=== PATIENT | female | born 1980 | race Caucasian/White ===

== ENCOUNTER 2021-10-07 09:38 | Outpatient (CLI) | payer BC, SELFPAY ==
--- NOTE | ~2021-10-07 | US_ITS ---
US abdomen complete DATE: 10/07/2021 10:55 INDICATION: Abnormal levels of serum enzymes TECHNIQUE: Real-time imaging and Doppler analysis of the abdomen COMPARISON: None FINDINGS: There is an irregular relatively circumscribed hypoechoic approximately 3.6 x 3.6 cm area o f the liver near to the gallbladder, which may be focal fat sparing versus hepatic mass lesion. Furth er evaluation with hepatic MRI examination would be helpful for further evaluation. No gallstones or gallbladder wall thickening or pericholecystic fluid collection. Negative sonographi c Linda's sign. The common bile duct measures 5.4 mm, normal. No renal mass lesion or hydronephrosis. Spleen measures up to 11.5 cm length, within normal range. Normal caliber of the abdominal aorta. Inferior vena cava is unremarkable. IMPRESSION: Irregular hypoechoic area adjacent to gallbladder, which may be focal fat sparing versus hepatic mass lesions; hepatic MR would be helpful to differentiate these possibilities Reviewed, dictated and finalized at [facility]. Reviewed, dictated and finalized at [facility]. IMPRESSION: Irregular hypoechoic area adjacent to gallbladder, which may be foc al fat sparing versus hepatic mass lesions; hepatic MR would be helpful to diff erentiate these possibilities
== END 2021-10-07 09:39 | disposition home or self-care (01) ==
PROVIDERS: PCP Family Medicine; Visit Provider Nurse Practitioner Gerontology
DX: R74.8 Abnormal levels of other serum enzymes (principal)
CPT/HCPCS: 76700

== ENCOUNTER 2021-11-04 16:29 | Outpatient (CLI) | payer BC, SELFPAY ==
--- NOTE | ~2021-11-04 | MR_ITS ---
EXAMINATION: MR abdomen wo/w con DATE: 11/04/2021 17:27 INDICATION: Liver mass. TECHNIQUE: Magnetic resonance imaging (MRI) of the abdomen was performed without and with 15 mL Multi Adam intravenous contrast. COMPARISON: Abdomen ultrasound 10/08/2019 FINDINGS: There is diffuse hepatic steatosis with focal sparing in the gallbladder fossa. There is a 7 mm cyst in the liver. The gallbladder, spleen, pancreas, adrenal glands, and left kidney are normal. There is a 5 mm cyst in right kidney. There are no dilated loops of bowel. There are no pathologically enlarg ed lymph nodes. There is no free intraperitoneal fluid. IMPRESSION: 1. Diffuse hepatic steatosis. The ultrasound finding correlates with focal sparing in the gallbladder fossa. Reviewed, dictated and finalized at location [facility]. IMPRESSION: 1. Diffuse hepatic steatosis. The ultrasound finding correlates with focal spar ing in the gallbladder fossa.
[2021-11-04 17:00] LABS: Estimated Glomerular Filt Rate > 60
== END 2021-11-04 16:30 | disposition home or self-care (01) ==
PROVIDERS: PCP Family Medicine; Visit Provider Nurse Practitioner Gerontology
DX: K76.0 Fatty (change of) liver, not elsewhere classified (principal)
CPT/HCPCS: 74183; A9577

== ENCOUNTER 2022-02-18 07:54 | Outpatient (CLI) | payer BC, SELFPAY ==
--- NOTE | 2022-02-18 08:10 | EST_ITS ---
Patient Info Name: Chrissy Schmid Age: 41 years : 1980 Gender: Female Ht: 66 in Wt: 165 lbs BSA: 1.88 m2 Exam Date: 02/18/2022 9:55 AM Exam Location: [facility] Stress Patient Status: Outpatient Admit Date: 02/18/2022 Staff Ordering Physician: Hoang Sutton DO Attending Provider: Hoang Sutton DO Exercise Technologist: Carmen Alvarado RDCS Exercise Physician: Hoang Sutton DO Exam Type: CA stress test treadmill Study Info Indications R06.09 - Other forms of dyspnea A treadmill exercise stress test was performed. Summary 1. 1. Negative Juan exercise stress test for ischemic ST changes by ECG criteria. 2. 2. Good functional capacity, achieving 10 METs of workload. 3. 3. Appropriate HR response to exercise. 4. 4. Appropriate HR recovery at 1 minute post exercise. 5. 5. No imaging with stress testing. 6. 6. Patient informed of the above results. Protocol: Juan Stress ECG Details Stage: REST Duration (min): 1 min : 1 sec Speed (mph): 0.0 Grade (%): 0 HR (bpm): 87 SBP (mmHg): 111 DBP (mmHg): 82 METS: --- Stage: REST Duration (min): 6 min : 50 sec Speed (mph): 0.0 Grade (%): 0 HR (bpm): 105 SBP (mmHg): 111 DBP (mmHg): 82 METS: --- Stage: STAGE 1 Duration (min): 1 min : 0 sec Speed (mph): 1.7 Grade (%): 10 HR (bpm): 118 SBP (mmHg): 111 DBP (mmHg): 82 METS: --- Stage: STAGE 1 Duration (min): 2 min : 0 sec Speed (mph): 1.7 Grade (%): 10 HR (bpm): 129 SBP (mmHg): 111 DBP (mmHg): 82 METS: --- Stage: STAGE 1 Duration (min): 3 min : 0 sec Speed (mph): 1.7 Grade (%): 10 HR (bpm): 126 SBP (mmHg): 146 DBP (mmHg): 90 METS: --- Stage: STAGE 2 Duration (min): 1 min : 0 sec Speed (mph): 2.5 Grade (%): 12 HR (bpm): 141 SBP (mmHg): 146 DBP (mmHg): 90 METS: --- Stage: STAGE 2 Duration (min): 2 min : 0 sec Speed (mph): 2.5 Grade (%): 12 HR (bpm): 143 SBP (mmHg): 181 DBP (mmHg): 86 METS: --- Stage: STAGE 2 Duration (min): 3 min : 0 sec Speed (mph): 2.5 Grade (%): 12 HR (bpm): 149 SBP (mmHg): 181 DBP (mmHg): 86 METS: --- Stage: STAGE 3 Duration (min): 1 min : 0 sec Speed (mph): 3.4 Grade (%): 14 HR (bpm): 162 SBP (mmHg): 176 DBP (mmHg): 86 METS: --- Stage: STAGE 3 Duration (min): 2 min : 0 sec Speed (mph): 3.4 Grade (%): 14 HR (bpm): 173 SBP (mmHg): 176 DBP (mmHg): 86 METS: --- Stage: STAGE 1 Duration (min): 3 min : 0 sec Speed (mph): 1.7 Grade (%): 10 HR (bpm): 126 SBP (mmHg): 146 DBP (mmHg): 90 METS: --- Stage: STAGE 2 Duration (min): 3 min : 0 sec Speed (mph): 2.5 Grade (%): 12 HR (bpm): 149 SBP (mmHg): 181 DBP (mmHg): 86 METS: --- Stage: STAGE 3 Duration (min): 3 min : 0 sec Speed (mph):
--- NOTE | 2022-02-18 08:10 | ECHO_ITS ---
Patient Info Name: Chrissy Schmid Age: 41 years : 1980 Gender: Female Ht: 66 in Wt: 165 lbs BSA: 1.88 m2 HR: 78 bpm BP: 137 / 104 mmHg Technical Quality: Good Exam Date: 02/18/2022 8:39 AM Exam Location: [facility] Pulmonary Patient Status: Outpatient Admit Date: 02/18/2022 Staff Ordering Physician: Hoang Sutton DO F[employer]er [employer] Burner: Douglas Linda RDCS, RT Attending Provider: Hoang Sutton DO Referring Physician: Herman ADRIAN; Exam Type: CA echo doppler color flow Study Info Indications R06.09 - Other forms of dyspnea Complete two-dimensional, color flow and Doppler transthoracic echocardiogram is performed. Strain analysis performed. Summary 1. Complete two-dimensional, color flow and Doppler transthoracic echocardiogram is performed. 2. Left ventricular chamber dimension is normal. 3. Left ventricular systolic function is normal, estimated at 60-65%. 4. The left ventricular diastolic function is normal. 5. E/e' 7 is not elevated. 6. Global longitudinal strain is normal at -17.9%. 7. The mitral valve has mild posterior prolapse. 8. There is trace tricuspid valve regurgitation. Left Ventricle Global longitudinal strain is normal at -17.9%. E/e' 7 is not elevated. Left ventricular chamber dimension is normal. Left ventricular systolic function is normal, estimated at 60-65%. The left ventricular diastolic function is normal. Right Ventricle Right ventricular chamber dimension is normal. Right ventricular systolic function is normal. Left Atria Left atrial chamber dimension is normal. Right Atria Right atrial chamber dimension is normal. Aortic Valve The aortic valve is trileaflet. There is no aortic valve stenosis. There is no aortic valve regurgitation. Pulmonic Valve There is no pulmonic regurgitation. Mitral Valve The mitral valve has mild posterior prolapse. There is no mitral valve stenosis. There is no mitral valve regurgitation. Tricuspid Valve There is trace tricuspid valve regurgitation. RVSP is not calculated due to an inadequate TR jet. Pericardium/Pleural There is no pericardial effusion. Inferior Vena Cava Normal inferior vena cava with >50% collapse upon inspiration consistent with normal right atrial pressure, 5 mmHg. Aorta The aortic root size at the sinus of Valsalva is normal. Left Ventricular Outflow Tract Name Value Normal LVOT 2D LVOT Diameter 2.0 cm LVOT Doppler LVOT Peak Gradient 3 mmHg LVOT Mean Gradient 2 mmHg LVOT VTI 18 cm LVOT VTI/AV VTI Ratio 0.8 LVOT Stroke Volume 54 ml LVOT CO 4.5 l/min LVOT CI 2.4 l/min/m2 Mitral Valve Name Value Normal MV Doppler
== END 2022-02-18 07:55 | disposition home or self-care (01) ==
LOC: ANHCARD 07:56
PROVIDERS: PCP Family Medicine; Visit Provider Internal Medicine Cardiovascular Disease
DX: I34.1 Nonrheumatic mitral (valve) prolapse (principal); R06.09 Other forms of dyspnea; R07.89 Other chest pain
CPT/HCPCS: 93017; 93306